=== PATIENT | female | born 1995 | race Caucasian/White ===

== ENCOUNTER 2018-04-21 05:31 | Emergency (ER) | payer OTHER ==
--- NOTE | 2018-04-21 05:41 | EDPHY ---
H & P Stated Complaint: MIGRAINE X 1 WEEK Source: Patient - Personal History LMP (Females 10-55): 8-14 Days Ago Current Tetanus Diphtheria and Acellular Pertussis (TDAP): Yes - Medical/Surgical History Hx Asthma: No Hx Chronic Respiratory Disease: No Hx Diabetes: No Hx Cardiac Disease: No Hx Renal Disease: No Hx Cirrhosis: No Hx Alcoholism: No Hx HIV/AIDS: No Hx Splenectomy or Spleen Trauma: No Other PMH: MIGRAINES, SX KNEE, ANXIETY, DEPRESSION - Social History Smoking Status: Never smoked Time Seen by Provider: 04/21/18 05:41 HPI/ROS: HPI CHIEF COMPLAINT: Migraine headache. HISTORY OF PRESENT ILLNESS: 22-year-old female, has a history of migraine headaches, she reports that she get migraine headaches regularly. She states she has had this headache for the past week. She took her typical migraine medication which includes max-alt and Benadryl and some nausea medicine however this did not help. She has had her headache rather constant over the past week. She has not any vomiting but her main complaint is nausea. She does complain of some blurry vision. She reports that this is slightly different from her typical migraine. She states more intense, bandlike, and has a pain in the back of her head. Due to it not being able to stop and she not getting much sleep last night she decided come the emergency room. Main complaint nausea. She describes her headache as rather bandlike around her head. This headache was not sudden onset. This is not the worst headache of her life. She denies any neck pain or fever. Denies focal weakness numbness or tingling. 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 Past Medical History: Migraine headache Past Surgical History: Knee surgery Social History: Denies drugs alcohol tobacco. In school. Student. Family History: Noncontributory ROS REVIEW OF SYSTEMS: 10 Systems were reviewed and negative with the exception of the elements mentioned in the history of present illness. Exam Constitutional appears well nontoxic no acute distress, triage nursing summary reviewed, vital signs reviewed, awake/alert. Eyes normal conjunctivae and sclera, EOMI, PERRLA. HENT normal inspection, atraumatic, moist mucus membranes, no epistaxis, neck supple/ no meningismus, no raccoon eyes. Respiratory clear to auscultation bilaterally, normal breath sounds, no respiratory distress, no wheezing. Cardiovascular rate normal, regular rhythm, no murmur, no edema, distal pulses normal. Gastrointestinal soft, non-tender, no rebound, no guarding, normal bowel sounds, no distension, no pulsatile mass. Genitourinary no CVA tenderness. Musculoskeletal no midline vertebral tenderness, full range of motion, no calf swelling, no tenderness of extremities, no meningismus, good pulses, neurovascularly intact. Skin pink, warm, & dry, no rash, skin atraumatic. Neurologic awake, alert and oriented x 3, AAOx3, moves all 4 extremities equally, motor intact, sensory intact, CN II-XII intact, normal cerebellar, normal vision, normal speech. Psychiatric normal mood/affect. Heme/Lymph/Immune no lymphadenopathy. Differential Diagnosis: Includes but is not limited to in a particular order migraine headache, tension headache, cluster headache, intracranial bleed, meningitis, encephalitis Medical Decision Making: Plan for this patient IV establishment with IV fluid bolus, migraine cocktail, CT scan head without contrast giving headache going on for week and slightly different than her typical migraine. Her neurological exam here in emergency room is unremarkable good strength throughout all extremities, cranial nerves are intact. Normal interaction with the patient. Re-evaluation: CT scan head without contrast. Negative for acute bleed. Called to me by Dr. Child. 0709: Patient re-evaluated this time she does tell me that her headache is somewhat improved but still present. She does not feel comfortable going home yet. She states that she would like to get better pain control. I have ordered her 2nd L fluid. Additional pain medicine. Will re-evaluate shortly. Signed over at 7:00 a.m. Shift change to Dr. Baires to re-eval. (Kulwinder Hernandez) Constitutional: Initial Vital Signs Temperature (C) 36.5 C 04/21/18 05:37 Heart Rate 115 H 04/21/18 05:37 Respiratory Rate 16 04/21/18 05:37 Blood Pressure 130/89 H 04/21/18 05:37 O2 Sat (%) 97 04/21/18 05:37 O2 Delivery Mode Room Air Allergies/Adverse Reactions: topiramate [From Topamax] Allergy (Verified 04/21/18 05:36) Home Medications: Medication Instructions Recorded Acet/Caffeine/Buta Fioricet 1 each PO Q6 #12 tab 04/21/18 [Fioricet (*)] Citalopram 04/21/18 Simatriptan 04/21/18 buPROPion 04/21/18 Medical Decision Making - Diagnostics Imaging Results: Imaging Impressions Head CT 04/21/18 05:48 Impression: Normal. Results called and discussed with Kulwinder Hernandez MD at 04/21/2018 0623 hours. 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 ED Course/Re-evaluation: I took over care of this patient at 7:00 a.m.. This patient presented to the emergency department with a migraine headache, gradual in onset. She has a negative workup and negative CT imaging. She has been given 0.5 mg of IV Dilaudid and started on another L of IV fluid after still complaining of headache pain status post migraine headache cocktail. She is to be re- evaluated. 9:15 a.m., the patient is feeling much better. Headache is resolved. She feels comfortable being discharged with a sober ride. Follow-up and return to emergency department precautions reviewed with her. All of her questions were answered. Repeat neurologic Assessment is nonfocal. She is up and ambulatory under her own power without difficulty and with a normal gait. She was discharged in good condition with a friend who is driving. (Yifan Bautista) - Data Points Laboratory Results: Laboratory Results 04/21/18 05:46 04/21/18 05:46 04/21/18 04/21/18 04/21/18 05:46 05:46 05:46 WBC 7.73 10^3/uL 10^3/uL (3.80-9.50) RBC 4.75 10^6/uL 10^6/uL (4.18-5.33) Hgb 14.4 g/dL g/dL (12.6-16.3) Hct 41.0 % % (38.0-47.0) MCV 86.3 fL fL (81.5-99.8) MCH 30.3 pg pg (27.9-34.1) MCHC 35.1 g/dL g/dL (32.4-36.7) RDW 13.2 % % (11.5-15.2) Plt Count 407 10^3/uL H 10^3/uL (150-400) MPV 9.5 fL fL (8.7-11.7) Neut % (Auto) 64.1 % % (39.3-74.2) Lymph % (Auto) 26.6 % % (15.0-45.0) [place] % (Auto) 6.9 % % (4.5-13.0) Eos % (Auto) 1.7 % % (0.6-7.6) Baso % (Auto) 0.4 % % (0.3-1.7) Nucleat RBC Rel Count 0.0 % % (0.0-0.2) Absolute Neuts (auto) 4.96 10^3/uL 10^3/uL (1.70-6.50) Absolute Lymphs (auto) 2.06 10^3/uL 10^3/uL (1.00-3.00) Absolute Monos (auto) 0.53 10^3/uL 10^3/uL (0.30-0.80) Absolute Eos (auto) 0.13 10^3/uL 10^3/uL (0.03-0.40) Absolute Basos (auto) 0.03 10^3/uL 10^3/uL (0.02-0.10) Absolute Nucleated RBC 0.00 10^3/uL 10^3/uL (0-0.01) Immature Gran % 0.3 % % (0.0-1.1) Immature Gran # 0.02 10^3/uL 10^3/uL (0.00-0.10) Sodium 141 mEq/L mEq/L (135-145) Potassium 4.5 mEq/L mEq/L (3.5-5.2) Chloride 111 mEq/L H mEq/L (97-110) Carbon Dioxide 20 mEq/l L mEq/l (22-31) Anion Gap 10 mEq/L mEq/L (6-14) BUN 11 mg/dL mg/dL (7-23) Creatinine 0.8 mg/dL mg/dL (0.6-1.0) Estimated GFR > 60 Glucose 104 mg/dL H mg/dL (70-100) Calcium 9.4 mg/dL mg/dL (8.5-10.4) Beta HCG, Qual NEGATIVE Medications Given: Discontinued Medications Dexamethasone (Decadron Injection) 10 mg IVP EDNOW ONE Stop: 04/21/18 05:48 Last Admin: 04/21/18 06:10 Dose: 10 mg Diphenhydramine HCl (Benadryl Injection) 50 mg IVP EDNOW ONE Stop: 04/21/18 05:48 Last Admin: 04/21/18 06:06 Dose: 50 mg Hydromorphone HCl (Dilaudid) 0.5 mg IVP EDNOW ONE Stop: 04/21/18 07:04 Last Admin: 04/21/18 07:18 Dose: 0.5 mg Sodium Chloride (Ns) 1,000 mls @ 0 mls/hr IV ONCE ONE; Wide Open PRN Reason: Protocol Stop: 04/21/18 05:48 Last Admin: 04/21/18 06:07 Dose: 1,000 mls Sodium Chloride (Ns) 1,000 mls @ 0 mls/hr IV ONCE ONE PRN Reason: Wide Open Stop: 04/21/18 07:10 Last Admin: 04/21/18 07:18 Dose: 1,000 mls Ketorolac Tromethamine (Toradol) 30 mg IVP EDNOW ONE Stop: 04/21/18 05:48 Last Admin: 04/21/18 06:06 Dose: 30 mg Departure - Departure Disposition: Home, Routine, Self-Care Clinical Impression: Migraine headache Qualifiers: Migraine type: other Status migrainosus presence: without status migrainosus Intractability: not intractable Qualified Code(s): G43.809 - Other migraine, not intractable, without status migrainosus Condition: Good Instructions: Migraine Headache (ED), Acute Headache (ED) Additional Instructions: 1. Rest 2. Stay well-hydrated 3. Return emergency room if there is worsening symptoms including worsening headache, fever, vomiting. Referrals: NONE *PRIMARY CARE P,. [Primary Care Provider] - As per Instructions [facility] [Clinic] - As per Instructions Prescriptions: Acet/Caffeine/Buta Fioricet [Fioricet (*)] 1 each PO Q6 #12 tab
[2018-04-21] MEDS ORDERED: DEXAMETHASONE 10 MG/ML VIAL IVP ONE (05:47)
[2018-04-21] MEDS ORDERED: KETOROLAC 30 MG/1 ML SDV IVP ONE (05:47)
[2018-04-21] MEDS ORDERED: NS 1,000 ML IV ONE ×2 (05:47→07:09)
[2018-04-21] MEDS ORDERED: DEXAMETHASONE 4 MG/ML VIAL ONE (05:56)
[2018-04-21 06:18] LABS: PLATELET COUNT 407 10^3/uL (150-400)
[2018-04-21] MEDS ORDERED: HYDROmorphONE/DILAUDID 2 MG/ML INJ IVP ONE (07:03)
[2018-04-21 09:30] VITALS: BP 144/79
== END 2018-04-21 09:22 | disposition home or self-care (01) ==
DX: G43.809 Other migraine, not intractable, without status migrainosus (principal); E86.9 Volume depletion, unspecified
CPT/HCPCS: 96374; J1100; J1170; J1200; J1885